=== PATIENT | female | born 1970 | race Caucasian/White ===

== ENCOUNTER 2022-11-03 19:16 | Emergency (ER) | payer OTHER ==
[~2022-11-03] VITALS: Ht 152.4 cm; Wt 93.2 kg
[~2022-11-03 19:16] MED LIST: ALBUTEROL PO; gabapentin PO; levothyroxine PO; lisinopril PO; omeprazole PO
[2022-11-03] MEDS ORDERED: IBUPROFEN 600 MG TABLET PO ONE (19:45)
[2022-11-03] MEDS ORDERED: ClonazePAM 1 MG TABLET PO ONE (19:45)
[2022-11-03 20:01] LABS: GLUCOMETER DEV NAME(LOC) ERT.5; GLUCOSE,POINT OF CARE 104 MG/DL (70-110)
[2022-11-03 20:36] VITALS: BP 148/67
== END 2022-11-03 20:37 | disposition home or self-care (01) ==
LOC: EMS 19:16
DX: G25.0 Essential tremor (principal); J45.909 Unspecified asthma, uncomplicated; J44.9 Chronic obstructive pulmonary disease, unspecified; I10 Essential (primary) hypertension; E11.9 Type 2 diabetes mellitus without complications; E03.9 Hypothyroidism, unspecified
CPT/HCPCS: 82948; 82962; 99283